=== PATIENT | male | born 1985 | race Caucasian/White ===

== ENCOUNTER 2021-05-28 11:11 | Day surgery (SDC) | payer BC ==
[2021-05-27 10:27] VITALS: BMI 29.9
[~2021-05-28 11:11] MED LIST: Fentanyl 100 MCG/2 ML VIAL ONE
[2021-05-28] MEDS ORDERED: Iothalamate Meglumine 60% 50 ML VIAL FS ONE (12:00)
[2021-05-28] MEDS ORDERED: Levofloxacin 500 mg/D5W 100 ml Premix Bag ONE (12:20)
[2021-05-28] MEDS ORDERED: Scopolamine 1.5 mg/72 hour Patch ONE (12:30)
[2021-05-28] MEDS ORDERED: Rocuronium Bromide 10 MG/ML (10ML VIAL) ONE (13:44)
[2021-05-28] MEDS ORDERED: Lidocaine 1% PF 5 ML VIAL ONE (13:44)
[2021-05-28] MEDS ORDERED: PROPOFOL 200 MG/20 ML VIAL ONE (13:44)
[2021-05-28] MEDS ORDERED: Ondansetron PF 4 MG/2 ML Vial ONE (15:10)
== END 2021-05-28 17:45 | disposition home or self-care (01) ==
LOC: SDC 11:11
PROVIDERS: ATTEND Urology
PROC: 0TC48ZZ Extirpation of Matter from Left Kidney Pelvis, Via Natural or Artificial Opening Endoscopic (ICD-10-PCS; principal; 2021-05-28)
PROC: 0T778DZ Dilation of Left Ureter with Intraluminal Device, Via Natural or Artificial Opening Endoscopic (ICD-10-PCS; principal; 2021-05-28)
PROC: 0TC78ZZ Extirpation of Matter from Left Ureter, Via Natural or Artificial Opening Endoscopic (ICD-10-PCS; principal; 2021-05-28)
DX: N13.2 Hydronephrosis with renal and ureteral calculous obstruction (principal); G80.0 Spastic quadriplegic cerebral palsy; J45.909 Unspecified asthma, uncomplicated; E78.5 Hyperlipidemia, unspecified; G47.30 Sleep apnea, unspecified; Z79.899 Other long term (current) drug therapy; Z99.3 Dependence on wheelchair
CPT/HCPCS: 76000; 82365; 88300; C2617; J1956; J2405; J2704; J3010; Q9961

== ENCOUNTER 2025-07-08 08:49 | Outpatient (CLI) | payer BC | END 2025-07-08 08:50 | disposition home or self-care (01) | LOC: SCSMRI 08:49 | PROVIDERS: ATTEND Family Medicine Sports Medicine | DX: S83.242A Other tear of medial meniscus, current injury, left knee, initial encounter (principal); S82.102A Unspecified fracture of upper end of left tibia, initial encounter for closed fracture ==

== ENCOUNTER 2025-08-27 08:45 | Outpatient (CLI) | payer BC | END 2025-08-27 08:46 | disposition home or self-care (01) | LOC: SCSBT 08:45 | PROVIDERS: ATTEND Family Medicine | DX: M85.80 Other specified disorders of bone density and structure, unspecified site (principal); Z87.311 Personal history of (healed) other pathological fracture; M81.0 Age-related osteoporosis without current pathological fracture | CPT/HCPCS: 77080 ==

== ENCOUNTER 2025-10-03 09:50 | Outpatient (CLI) | payer BC | END 2025-10-03 09:51 | disposition home or self-care (01) | LOC: SCSRAD 09:50 | PROVIDERS: ATTEND Family Medicine Sports Medicine | DX: S82.122D Displaced fracture of lateral condyle of left tibia, subsequent encounter for closed fracture with routine healing (principal); S82.145A Nondisplaced bicondylar fracture of left tibia, initial encounter for closed fracture; M81.0 Age-related osteoporosis without current pathological fracture ==